=== PATIENT | male | born 1995 | race Caucasian/White ===

== ENCOUNTER 2019-03-17 12:11 | Emergency (ER) | payer OTHER ==
[2019-03-17 12:20] VITALS: BP 114/64; PULSE 86; TEMP 98.4; BMI 25.8
--- NOTE | 2019-03-17 14:13 | PDOC ---
History of Present Illness - General Chief Complaint: Cold Symptoms Stated Complaint: COUGHING Time Seen by Provider: 03/17/19 13:34 History Source: Patient Exam Limitations: No Limitations Past History - Travel Traveled outside of the country in the last 30 days: No Close contact w/someone who was outside of country & ill: No - Past Medical History Allergies/Adverse Reactions: Allergies Allergy/AdvReac Type Severity Reaction Status Date / Time No Known Allergies Allergy Verified 03/17/19 12:20 Home Medications: Ambulatory Orders Albuterol Sulfate Inhaler - [Ventolin HFA Inhaler -] 1 - 2 inh PO Q4H #1 inhaler 03/17/19 Amox-Tr/K Cl [Augmentin - 875Mg Tablet] 1 tab PO BID #14 tablet 03/17/19 Fluticasone Prop 0.05% Nasal [Flonase -] 1 - 2 spray NS DAILY #1 spray.pump 09/27 Guaifenesin AC [Robitussin AC] 10 ml PO HS #100 ml MDD 1 03/17/19 Pseudoephedrine HCl 30 mg PO Q6H #30 tablet 03/17/19 COPD: No - Psycho Social/Smoking Cessation Hx Smoking History: Never smoked Review of Systems - Review of Systems Able to Perform ROS?: Yes Comments:: 03/17/19 14:08 CONSTITUTIONAL: Absent: fever, chills, diaphoresis, generalized weakness, malaise, loss of appetite HEENT: Present: Sinus pain, nasal congestion. Absent: throat pain, throat swelling, difficulty swallowing, mouth swelling, ear pain, eye pain, visual Changes CARDIOVASCULAR: Absent: chest pain, loss of consciousness, palpitations, irregular heart rate, peripheral edema RESPIRATORY: Present: Cough Absent: shortness of breath, dyspnea with exertion, orthopnea, wheezing, stridor, hemoptysis GASTROINTESTINAL: Absent: abdominal pain, abdominal distension, nausea, vomiting, diarrhea, constipation, melena, hematochezia GENITOURINARY: Absent: dysuria, frequency, urgency, hesitancy, hematuria, flank pain, genital pain MUSCULOSKELETAL: Absent: myalgia, arthralgia, joint swelling SKIN: Absent: rash, itching, pallor NEUROLOGIC: Present: headache Absent: focal weakness or paresthesias, dizziness, unsteady gait, seizure, mental status changes, bladder or bowel incontinence PSYCHIATRIC: Absent: anxiety, depression, suicidal or homicidal ideation, hallucinations. Is the patient limited [place] proficient: No *Physical Exam - Vital Signs Last Vital Signs Temp Pulse Resp BP Pulse Ox 98.4 F 86 18 114/64 99 03/17/19 12:18 03/17/19 12:18 03/17/19 12:18 03/17/19 12:18 03/17/19 12:18 - Physical Exam 03/17/19 14:15 GENERAL: The patient is awake, alert, and fully oriented, in no acute distress. HEAD: Normal with no signs of trauma. EYES: Pupils equal, round and reactive to light, extraocular movements intact, sclera anicteric, conjunctiva clear. HEENT: (+) nasal congestion or rhinorrhea. (+) Maxillary sinus tenderness. Mucous membranes are moist. No tonsillar erythema, exudate or edema. Uvula is midline. No TM bulging, dullness or erythema. NECK: Neck is supple. No adenopathy. No meningismus. No stridor. EXTREMITIES: Normal range of motion, no edema. NEUROLOGICAL: Normal speech, normal gait. PSYCH: Normal mood, normal affect. SKIN: Warm, Dry, normal turgor, no rashes or lesions noted. Medical Decision Making - Medical Decision Making 03/17/19 14:15 The patient is a 23-year-old male no past medical history who presents the ER with headache and cough for 1 week. He also admits to associated congestion. He states he has green mucus through his nose and when he coughs. He states that the coughing makes the headache worse but he does have a headache at baseline. He is tried taking Tylenol with little relief of his symptoms. Denies fevers, chills, visual changes, nausea, vomiting and sore throat. A/P: Sinus infection On exam patient with maxillary sinus tenderness. Cough likely due to postnasal drip from congestion. Given 1 week of symptoms with sinus tenderness and headache will treat as a sinus infection Antibiotics, decongestants and an albuterol inhaler sent to patient pharmacy Discharge home with primary care follow-up Return precautions given. I discussed the physical exam findings, ancillary test results and final diagnoses with the patient. I answered all of the patient's questions. The patient was satisfied with the care received and felt comfortable with the discharge plan and treatment plan. The Patient agrees to follow up with the primary care physician/specialist within 24-72 hours. Return precautions were given. Discharge - Discharge Information Problems reviewed: Yes Clinical Impression/Diagnosis: Sinusitis Qualifiers: Sinusitis location: maxillary Chronicity: acute Recurrence: non-recurrent Qualified Code(s): J01.00 - Acute maxillary sinusitis, unspecified Condition: Stable Disposition: HOME - Admission No - Follow up/Referral Referrals: Pernell Merrill MD [Staff Physician] - - Patient Discharge Instructions Patient Printed Discharge Instructions: DI for Sinusitis Additional Instructions: Your evaluated for your headache and congestion. You most likely have a sinus infection. The congestion is most likely having you cough. Please take the medications as directed for your symptoms. Please follow-up with primary care. A referral has been provided for you. Please follow-up within a week if you can. Return to the ER for fever, worsening headache, neck pain or if you have any changes in your symptoms. - Post Discharge Activity Work/Back to School Note: Back to Work
== END 2019-03-17 14:30 | disposition home or self-care (01) ==
LOC: JERFT 12:11
DX: J01.00 Acute maxillary sinusitis, unspecified (principal)
CPT/HCPCS: 99281-25

== ENCOUNTER 2019-09-04 11:52 | Emergency (ER) | payer OTHER ==
[2019-09-04 12:02] VITALS: BP 120/71; PULSE 75; TEMP 98.3; BMI 23.6
[2019-09-04 14:38] LABS: PH,URINE 7.5 (5.0-8.0); URINE APPEARANCE CLEAR; URINE BILIRUBIN NEGATIVE (NEGATIVE); URINE COLOR YELLOW; URINE GLUCOSE (UA) NEGATIVE (NEGATIVE); URINE KETONE NEGATIVE (NEGATIVE); URINE LEUK ESTERASE NEGATIVE (NEGATIVE); URINE NITRITE NEGATIVE (NEGATIVE); URINE PROTEIN NEGATIVE (NEGATIVE); URINE UROBILINOGEN 0.2 mg/dL (0.2-1.0)
== END 2019-09-04 15:04 | disposition home or self-care (01) ==
LOC: JERFT 11:52
DX: N50.9 Disorder of male genital organs, unspecified (principal)
CPT/HCPCS: 36415; 76870-TC; 81003; 87086; 87491; 87591; 99284-25

== ENCOUNTER 2021-09-30 11:49 | Emergency (ER) | payer OTHER ==
[2021-09-30 12:22] VITALS: BP 113/74; PULSE 72; RESP 18; TEMP 97.8; BMI 25.0
[2021-09-30] MEDS ORDERED: KETOROLAC TROMETHAMINE 30 MG/1 ML VIAL IM ONE (12:45)
[2021-09-30] MEDS ORDERED: KETOROLAC TROMETHAMINE 30 MG/1 ML VIAL ONE (12:47)
== END 2021-09-30 13:02 | disposition home or self-care (01) ==
LOC: JERFT 11:49
PROC: 3E0233Z Introduction of Anti-inflammatory into Muscle, Percutaneous Approach (ICD-10-PCS; principal; 2021-09-30)
DX: K64.8 Other hemorrhoids (principal)
CPT/HCPCS: 99283-25

== ENCOUNTER 2022-04-14 16:27 | Emergency (ER) | payer OTHER ==
[2022-04-14 16:36] VITALS: BP 111/71; PULSE 77; RESP 18; TEMP 98.2; BMI 25.4
== END 2022-04-14 18:09 | disposition home or self-care (01) ==
LOC: JER 16:27
DX: H93.8X1 Other specified disorders of right ear (principal)
CPT/HCPCS: 0241U-QW; 99283-25

== ENCOUNTER 2023-05-18 13:57 | Emergency (ER) | payer OTHER ==
[2023-05-18 14:09] VITALS: BMI 25.5
[2023-05-18 14:40] LABS: PH,URINE 8.5 (5.0-8.0); URINE APPEARANCE CLEAR; URINE BILIRUBIN NEGATIVE (NEGATIVE); URINE COLOR YELLOW; URINE GLUCOSE (UA) NEGATIVE (NEGATIVE); URINE KETONE NEGATIVE (NEGATIVE); URINE LEUK ESTERASE NEGATIVE (NEGATIVE); URINE NITRITE NEGATIVE (NEGATIVE); URINE PROTEIN NEGATIVE (NEGATIVE); URINE UROBILINOGEN 0.2 mg/dL (0.2-1.0)
[2023-05-18] MEDS ORDERED: ACETAMINOPHEN INJECTION 100 ML IVPB ONE (14:47)
[2023-05-18] MEDS: ACETAMINOPHEN 1000 MG/100 ML BAG IVPB ONE (14:55)
[2023-05-18 15:12] LABS: BASO % 0.1 % (0-2.0); EOS % 0.6 % (0-4.5); HEMATOCRIT 42.1 % (35.4-49); HEMOGLOBIN 14.1 GM/dL (11.7-16.9); LYMPH % 3.3 % (8-40); MCH 29.7 pg (25.7-33.7); MCHC 33.5 g/dl (32.0-35.9); MEAN CELL VOLUME 88.8 fl (80-96); MEAN PLT VOLUME 9.3 fl (7.5-11.1); MONO % 10.8 % (3.8-10.2); NEUT % 85.2 % (42.8-82.8); PLATELET COUNT 170 10^3/uL (134-434); RBC 4.74 M/mm3 (4.00-5.60); RDW 13.4 % (11.9-15.9); WHITE BLOOD COUNT 6.7 K/mm3 (4.0-10.0)
[2023-05-18 15:26] LABS: POTASSIUM 4.1 mmol/L (3.5-5.1)
[2023-05-18 15:28] LABS: CALCIUM 9.6 mg/dL (8.5-10.1)
[2023-05-18 15:29] LABS: ALBUMIN 3.9 g/dl (3.4-5.0); BLOOD UREA NITROGEN 10.6 mg/dL (7-18)
[2023-05-18 15:33] LABS: BILIRUBIN,TOTAL 0.3 mg/dL (0.2-1)
[2023-05-18] MEDS ORDERED: KETOROLAC TROMETHAMINE 15 MG/ML VIAL ONE (16:42)
[2023-05-18] MEDS: KETOROLAC TROMETHAMINE 15 MG/ML VIAL IVPUSH ONE (17:07)
[2023-05-18 17:21] VITALS: TEMP 99.3
[2023-05-18] MEDS ORDERED: morphine SULFATE 4 MG/ML VIAL ONE (18:22)
[2023-05-18] MEDS: morphine CARPU-JECT 4 MG/1 ML DISP.SYRIN IVPUSH ONE (18:28)
[2023-05-18] MEDS: SODIUM CHLORIDE 0.9% 500 ML INFUS.BAG IV ONE (18:29)
[2023-05-18 19:10] VITALS: BP 114/68; PULSE 95; RESP 16
== END 2023-05-18 20:10 | disposition home or self-care (01) ==
LOC: JERFT 13:57
PROC: 3E033NZ Introduction of Analgesics, Hypnotics, Sedatives into Peripheral Vein, Percutaneous Approach (ICD-10-PCS; principal; 2023-05-18)
PROC: 3E0333Z Introduction of Anti-inflammatory into Peripheral Vein, Percutaneous Approach (ICD-10-PCS; 2023-05-18)
PROC: 3E033GC Introduction of Other Therapeutic Substance into Peripheral Vein, Percutaneous Approach (ICD-10-PCS; 2023-05-18)
DX: M54.9 Dorsalgia, unspecified (principal); R10.9 Unspecified abdominal pain; Z20.822 Contact with and (suspected) exposure to COVID-19
CPT/HCPCS: 0241U-QW; 36415; 74177-TC; 80053; 81003; 83690; 85025; 99285-25; J0131; Q9967